=== PATIENT | female | born 1945 | race Caucasian/White ===

== ENCOUNTER 2016-08-16 10:09 | Emergency (ER) | payer OTHER ==
[~2016-08-16] VITALS: Ht 160 cm; Wt 100.7 kg
[2016-08-16 11:07] LABS: HEMATOCRIT 39.4 % (36.0-46.0); MCH 31.9 PG (29.0-34.0); MCHC 34.8 G/DL (30.0-36.0); MCV 91.8 FL (83-99); MEAN PLAT.VOLUME 9.4 uM^3 (9.5-12.4); PLATELET COUNT 231 K/uL (156-360); RBC DIS.WIDTH-CV 14.3 % (11.8-14.6); RBC DIS.WIDTH-SD 46.6 % (39-53); RED BLOOD COUNT 4.29 M/uL (3.80-5.20); WHITE BLOOD COUNT 6.9 K/uL (4.1-10.2)
[2016-08-16] MEDS ORDERED: ASPIR-LOW81 MG PO (11:13)
[2016-08-16 11:14] LABS: CHLORIDE 109 mEq/L (99-109); POTASSIUM 4.4 mEq/L (3.7-5.4); SODIUM 142 mEq/L (136-147)
[2016-08-16] MEDS ORDERED: QUINAPRIL HCL40 MG PO (11:14)
[2016-08-16] MEDS ORDERED: ATORVASTATIN CA10 MG PO (11:14)
[2016-08-16 11:16] LABS: GLUCOSE 108 mg/dL (70-99)
[2016-08-16] MEDS ORDERED: SERTRALINE HCL50 MG PO (11:16)
[2016-08-16] MEDS ORDERED: NEURONTIN600 MG PO (11:16)
[2016-08-16] MEDS ORDERED: AMLODIPINE BESY10 MG PO (11:16)
[2016-08-16 11:17] LABS: ANION GAP 9 MEQ/L (2-14)
[2016-08-16] MEDS ORDERED: PHENYTOIN SODI100 M1 PO (11:17)
[2016-08-16 11:20] LABS: GFR ESTIMATE (CALCULATED) > 59 mL/min/
[2016-08-16 11:21] LABS: UREA NITROGEN (BUN) 14 mg/dL (9-23)
[2016-08-16 13:11] VITALS: BP 133/63
== END 2016-08-16 13:12 | disposition home or self-care (01) ==
LOC: EME 10:09
PROVIDERS: Nurse Practitioner Family
PROC: 2W3DX1Z Immobilization of Left Lower Arm using Splint (ICD-10-PCS; principal; 2016-08-16)
DX: S52.615A Nondisplaced fracture of left ulna styloid process, initial encounter for closed fracture (principal); R79.89 Other specified abnormal findings of blood chemistry; S00.83XA Contusion of other part of head, initial encounter; W10.9XXA Fall (on) (from) unspecified stairs and steps, initial encounter; E78.5 Hyperlipidemia, unspecified; I10 Essential (primary) hypertension
CPT/HCPCS: 70450; 70486; 72125; 73110; 73130; 80048; 80185; 85027; 99281; 99283